=== PATIENT | male | born 1990 | race Two or more races ===

== ENCOUNTER 2019-01-11 15:54 | Emergency (ER) | payer SELFPAY | END 2019-01-11 16:20 | disposition left against medical advice (07) | LOC: ER 15:54 | DX: Z53.21 Procedure and treatment not carried out due to patient leaving prior to being seen by health care provider (principal) ==

== ENCOUNTER 2019-01-12 11:33 | Emergency (ER) | payer OTHER ==
[2019-01-12 11:37] VITALS: BP 127/53
--- NOTE | 2019-01-12 11:55 | ER Document Report ---
ED Medical Screen (RME) - General Chief Complaint: Abscess Stated Complaint: POSSIBLE ABSCESS Time Seen by Provider: 01/12/19 11:52 Mode of Arrival: Ambulatory Information source: Patient Notes: 28-year-old male presented to ED for complaint of abscess just in front of the left ear. He is alert oriented respirations regular nonlabored speaking in full sentences. He states he had one last year that had to be I&D. Smokes pack cigarettes a day alcohol monthly denies use of illicit drugs. I have greeted and performed a rapid initial assessment of this patient. A comprehensive ED assessment and evaluation of the patient, analysis of test results and completion of medical decision making process will be conducted by an additional ED providers. - Related Data Allergies/Adverse Reactions: No Known Allergies Allergy (Unverified 01/12/19 11:49) Physical Exam - Vital signs Vitals: Temp Pulse Resp BP Pulse Ox 98 F 60 18 127/53 H 100 01/12/19 11:36 01/12/19 11:36 01/12/19 11:36 01/12/19 11:36 01/12/19 11:36 Course - Vital Signs Vital signs: Temp Pulse Resp BP Pulse Ox 98 F 60 18 127/53 H 100 01/12/19 11:36 01/12/19 11:36 01/12/19 11:36 01/12/19 11:36 01/12/19 11:36
== END 2019-01-12 13:25 | disposition left against medical advice (07) ==
LOC: ER 11:33
DX: H66.42 Suppurative otitis media, unspecified, left ear (principal)

== ENCOUNTER 2019-01-13 18:48 | Emergency (ER) | payer OTHER ==
--- NOTE | 2019-01-13 19:13 | ER Document Report ---
ED Medical Screen (RME) - General Chief Complaint: Abscess Stated Complaint: POSSIBLE ABSCESS Time Seen by Provider: 01/13/19 18:59 Mode of Arrival: Ambulatory Information source: Patient Notes: 28-year-old male presented to ED for complaint of abscess in front of the left ear. He was seen yesterday in triage and was to get seen for I&D of the abscess but he states that the wait was so long he left. States he smokes a pack a day drinks monthly and does not use illicit drugs. States he has had an abscess before on the other side of his face. He states he does not like to shave. I have greeted and performed a rapid initial assessment of this patient. A comprehensive ED assessment and evaluation of the patient, analysis of test results and completion of medical decision making process will be conducted by an additional ED providers. - Related Data Allergies/Adverse Reactions: No Known Allergies Allergy (Unverified 01/12/19 11:49) Physical Exam - Vital signs Vitals: Temp Pulse Resp BP Pulse Ox 97.6 F 67 16 131/55 H 100 01/13/19 18:53 01/13/19 18:53 01/13/19 18:53 01/13/19 18:53 01/13/19 18:53 Course - Vital Signs Vital signs: Temp Pulse Resp BP Pulse Ox 97.6 F 67 16 131/55 H 100 01/13/19 18:53 01/13/19 18:53 01/13/19 18:53 01/13/19 18:53 01/13/19 18:53
--- NOTE | 2019-01-13 19:25 | ER Document Report ---
HPI - HPI Time Seen by Provider: 01/13/19 18:59 Pain Level: 4 Context: Patient is a 28-year-old male who presents to the emergency department with a chief complaint of abscess. Patient reports he has had a large bump to the left cheek right outside of the tragus of the ear. Patient denies drainage. Patient reports he has had an abscess on his face before but this was on the other side. Patient states over the past 3 to 4 days this is gotten larger. Patient rep orts he has been messing with it but did not attempt to cut it open. Past Medical History - General Information source: Patient - Social History Smoking Status: Current Every Day Smoker Frequency of alcohol use: Occasional Lives with: Family Family History: None Patient has suicidal ideation: No Patient has homicidal ideation: No - Past Medical History Cardiac Medical History: Reports: None Pulmonary Medical History: Reports: None EENT Medical History: Reports: None Neurological Medical History: Reports: None Endocrine Medical History: Reports: None Renal/ Medical History: Reports: None Malignancy Medical History: Reports None GI Medical History: Reports: None Musculoskeletal Medical History: Reports None Skin Medical History: Reports None Psychiatric Medical History: Reports: None Traumatic Medical History: Reports: None Infectious Medical History: Reports: None Surgical Hx: Negative Vertical Provider Document - CONSTITUTIONAL Agree With Documented VS: Yes Exam Limitations: No Limitations General Appearance: No Apparent Distress - INFECTION CONTROL TRAVEL OUTSIDE OF THE [place] IN LAST 30 DAYS: No - HEENT HEENT: Atraumatic, Normocephalic, PERRLA - RESPIRATORY Respiratory: Breath Sounds Normal, No Respiratory Distress - CARDIOVASCULAR Cardiovascular: Regular Rate, Regular Rhythm - GI/ABDOMEN Gastrointestinal: Abdomen Soft, Abdomen Non-Tender, Normal Bowel Sounds - MUSCULOSKELETAL/EXTREMETIES Musculoskeletal/Extremeties: FROM - NEURO Level of Consciousness: Awake, Alert, Appropriate - DERM Integumentary: Warm, Dry, Abscess Notes: 1.5 cm abscess to left cheek, adjacent to left tragus of ear, fluctuant. Course - Vital Signs Vital signs: Temp Pulse Resp BP Pulse Ox 97.6 F 67 16 131/55 H 100 01/13/19 18:53 01/13/19 18:53 01/13/19 18:53 01/13/19 18:53 01/13/19 18:53 Procedures - Incision and Drainage Left Face Type: Simple Anesthetic type: 1% Lidocaine mL's of anesthetic: 1 Blade size: 11 I&D procedure: Betadine prep applied Incision Method: Incision made by scalpel Notes: 01/13/19 20:13 Small incision was made over the 1.5 cm abscess. A small amount of bloody purulent discharge drained. 01/13/19 20:15 Adult Head Front/Back picture: 1 - Abscess location. Discharge - Discharge Clinical Impression: Abscess Condition: Stable Disposition: HOME, SELF-CARE Additional Instructions: Today you are seen in the emergency department for an abscess to the left side of your face. This did require incision and drainage. *We were able to drain infection out of the abscess. *This will continue to drain over the next few days but it will heal on its own. The incision does not need to be closed or sutured. *Use Tylenol and ibuprofen as needed for pain. You are being placed on oral antibiotic called Keflex. Please take this for its full course to help prevent infection. *Please use warm compresses to the site as this will aid in drainage. ABSCESS: You have an abscess (boil). This a pus-forming infection, usually due to staph. Some boils may be left to drain on their own, but most require lancing. From the time the tender lump first appears, it may be three or four days before the abscess is ready to kristi. Local heat and rest help at this stage of treatment. An antibiotic may prevent spread of the infection. Once the abscess is opened, packing may be placed into it. This is done so pus is not sealed inside by premature closure of the cavity. The packing will be removed at your follow-up visit or you may be advised to remove it yourself at home. Sometimes this packing must be replaced a few times during healing. The wound will heal with surprisingly little scar. Depending on the size and location of an abscess, healing can take one to four weeks. You may shower and wash the area around the incision site two or three times a day. Antibiotics may be prescribed, but are usually not necessary after an abscess has been drained. If you develop fever, chills, worsening pain, or increasing swelling in the area, call the doctor or return immediately. POST INCISION AND DRAINAGE: You have had an incision made to allow drainage of an abscess. The incision must remain open so that pus and debris can drain from the wound. If the abscess cavity is large, packing is placed. This keeps the tissues from collapsing and trapping pus inside, while the body shrinks the cavity. The packing may need to be replaced every day or two. The physician will instruct y ou on the packing. Keep a bulky dressing over the area. Replace it if it becomes saturated with blood or pus. Do not disturb the packing (if present). You may shower and cleanse the area with gentle soap and warm water two or three times a day. Local warmth may be soothing, and may promote faster healing. Return if you develop high fever or chills, or if you note spreading rednes s, increasing swelling, or increasing tenderness. CEPHALEXIN: The antibiotic you've been prescribed is a member of the cephalosporin class. This type of antibiotic covers a wide variety of infections, including those of the skin, lungs, and urinary tract. It's useful for staph infections. This antibiotic is slightly similar to the penicillin family. In rare cases, a person who is allergic to penicillin will also be allergic to this medication. If you have had a severe allergic reaction to penicillin, and have not taken this antibiotic since that time, notify your doctor. Antibiotics which cover many germs ("broad spectrum" antibiotics) are more likely to cause diarrhea or "yeast" infections. Women prone to vaginal yeast problems may suffer an attack after taking this antibiotic. In infants, oral thrush (white spots "stuck" on the cheek) or yeast diaper rash may result. See your doctor if these problems occur. Call at once if you develop itching, hives, shortness of breath, or lightheadedness. FOLLOW-UP CARE: Most simple abscesses will not require a follow up visit. If you had packing placed in the abscess, remove it as instructed by the physician. If you have been referred to a physician for follow-up care, call the physicians office for an appointment as you were instructed or within the next two days. If you experience worsening or a significant change in your symptoms, return to the Emergency Department at any time for re-evaluation. Prescriptions: Cephalexin Monohydrate [Keflex 500 mg Capsule] 500 mg PO Q6H 5 Days capsule Referrals: NIRAJ PUCKETT MD [ACTIVE STAFF] - Follow up as needed
[2019-01-13] MEDS ORDERED: CEPHALEXIN 500 MG CAPSULE PO ONE (20:12)
[2019-01-13 20:33] VITALS: BP 112/62
== END 2019-01-13 20:41 | disposition home or self-care (01) ==
LOC: ER 18:48
DX: L02.01 Cutaneous abscess of face (principal); F17.200 Nicotine dependence, unspecified, uncomplicated